=== PATIENT | male | born 2000 | race Caucasian/White ===

== ENCOUNTER 2021-08-30 15:18 | Emergency (ER) | payer OTHER, SELFPAY ==
[2021-08-30 15:24] VITALS: BP 128/89; PULSE 92; RESP 16; TEMP 36.4; O2SAT 100
[2021-08-30 15:30] LABS: Glucose Point of Care 101 mg/dl (65-105)
--- NOTE | 2021-08-30 15:30 | ECG_ITS ---
Measurements Intervals [place] Rate: 86 P: 45 CA: 156 QRS: 64 QRSD: 93 T: 51 QT: 356 QTc: 426 Interpretive Statements SINUS RHYTHM NO PREVIOUS ECG AVAILABLE FOR COMPARISON Electronically Signed On 08-30-2021 18:48:00 CDT by Rose Ramirez M.D.
[2021-08-30 15:59] LABS: Basophils Absolute Auto 0.1 K/mm3 (0.0-0.1); Basophils Percent Auto 0.6 % (0.2-1.2); Eosinophils Absolute Auto 0.2 K/mm3 (0-0.3); Eosinophils Percent Auto 1.6 % (0-4.4); Hematocrit 42.5 % (42.0-52.0); Immature Granulocyte Absolute 0.05 K/mm3 (0.00-0.031); Immature Granulocyte Percent A 0.4 % (0-0.5); Lymphocytes Absolute Auto 2.46 K/mm3 (0.9-3.2); Lymphocytes Percent Auto 20.5 % (18.3-44.2); Mean Corpuscular HGB Conc 35.3 g/dl (32-36); Mean Corpuscular Hemoglobin 30.4 pg (26-34); Mean Corpuscular Volume 86.2 fl (80-100); Mean Platelet Volume 10.7 fl (7.4-10.4); Monocytes Percent Auto 7.9 % (2.6-8.5); Neutrophils Absolute Auto 8.3 K/mm3 (1.3-6.7); Platelet Count Result 298 k/mm3 (150-375); Red Blood Count 4.93 M/mm3 (4.6-6.20); Red Cell Distribution Width 12.1 % (11.5-14.5)
[2021-08-30 16:11] LABS: Alanine Aminotransferase 15 U/L (4-50); Albumin Level 4.7 g/dL (3.5-5.1); Alkaline Phosphatase 114 U/L (38-126); Anion Gap 8 mmol/L (8-16); Aspartate Amino Transferase 27 U/L (17-59); Bilirubin,Total 0.5 mg/dL (0.2-1.3); Blood Urea Nitrogen 17 mg/dL (9-20); Calcium 8.9 mg/dL (8.4-10.2); Carbon Dioxide 24 mmol/L (22-30); Chloride 104 mmol/L (98-107); Estimated CRCL calculation 132 ml/min; Estimated Glomerular Filt Rate > 60; Glucose 98 mg/dL (65-110); Potassium 4.2 mmol/L (3.4-5.0); Sodium 136 mmol/L (137-145)
--- NOTE | 2021-08-30 16:13 | ED.NEUROSD ---
HPI - Neuro Symptoms/Deficit General Chief Complaint: Suspected CVA Stated Complaint: R sided numbness Time Seen by Provider: 08/30/21 15:24 Source: patient Limitations: no limitations History of Present Illness HPI Narrative: Patient presents with anxiety-like symptoms, feeling hot, restless, numbness of the face and right side of the body, poor concentration, epigastric discomfort, jittery feeling inside and shaky outside. Started at work while trying certain stuff together. Patient is telling me that he had history of anxiety/stress and depression, does not take medications, started the job 1 month ago, too much pressure and stress because constantly been asked to do perfectly job and patient unable to do it. Patient denies any fever, chills, chest pain, shortness of breath, headache or focal neuro deficit Related Data Allergies Allergy/AdvReac Type Severity Reaction Status Date / Time No Known Allergies Allergy Verified 08/30/21 15:30 Review of Systems Review of Systems: CONSTITUTIONAL: Denies fever, chills, or sweats. EYES: Denies visual changes, redness, or discharge. ENT: Denies rhinorrhea, congestion, sore throat, or otalgia. CARDIOVASCULAR: Denies chest pain, palpitations, or edema. RESPIRATORY: Denies cough or dyspnea. GASTROINTESTINAL: Denies abdominal pain, nausea, vomiting, or diarrhea. GENITOURINARY: Denies dysuria or hematuria. SKIN: Denies rash or itching. MUSCULOSKELETAL: Denies back pain, joint pain, or myalgia. NEUROLOGIC: Denies headache, numbness, or weakness. PSYCHIATRIC: Denies anxiety or depression. [facility] Past Medical History Medical History ADHD Exam Narrative: General appearance: Well-developed, well-nourished Skin: Normal color Head: Normocephalic, nontraumatic Eyes: Clear conjunctiva ENT: Oropharynx normal, ears normal, nose normal Neck: Supple, nontender Chest and respiratory: Airway patent, no respiratory distress, no accessory muscle use Heart: Regular rate/rhythm Abdomen: Soft, nontender, no organomegaly, quiet bowel sounds Vascular: Normal peripheral pulses, normal capillary refill. Musculoskeletal: Normal range of motion, nontender back Neurologic: Alert and oriented ?3, [employer] is normal as tested, no gross motor deficit Course Course Emergency Course: Stable Patient symptoms resolved after Ativan 1 mg IV. Patient would like to get off work today. Girlfriend at the bedside Vital Signs Vital signs: Vital Signs Temperature 36.4 C 08/30/21 15:24 Pulse Rate 92 08/30/21 15:24 Respiratory Rate 16 08/30/21 15:24 Blood Pressure 128/89 08/30/21 15:24 Pulse Oximetry 100 08/30/21 15:24 Temperature 36.4 C 08/30/21 15:24 Pulse Rate 92 08/30/21 15:24 Respiratory Rate 16 08/30/21 15:24 Blood Pressure 128/89 08/30/21 15:24 Pulse Oximetry 100 08/30/21 15:24 MDM - Neuro Symptoms/Deficit MDM Narrative Medical decision making narrative: Patient presents with anxiety-like symptoms Differential diagnosis as below Lab Data Result diagrams: 08/30/21 15:47 08/30/21 15:47 Labs: Lab Results 08/30/21 08/30/21 08/30/21 Range/Units 15:27 15:47 15:47 WBC 12.0 H (4.5-10.0) K/mm3 RBC 4.93 (4.6-6.20) M/mm3 Hgb 15.0 (14.0-18.0) g/dL Hct 42.5 (42.0-52.0) % MCV 86.2 (80-100) fl MCH 30.4 (26-34) pg MCHC 35.3 (32-36) g/dl RDW 12.1 (11.5-14.5) % Plt Count 298 (150-375) k/mm3 MPV 10.7 H (7.4-10.4) fl Immature Gran % (Auto) 0.4 (0-0.5) % Neut % (Auto) 69.0 (45.5-73.1) % Lymph % (Auto) 20.5 (18.3-44.2) % [place] % (Auto) 7.9 (2.6-8.5) % Eos
[2021-08-30 16:19] LABS: Add Urine Microscopic? NO; Appearance Urine Clear (Clear); Bilirubin Urine Negative (Negative); Blood Urine Negative (Negative); Color Urine Yellow (Yellow); Glucose Urine UA Negative (Negative); Ketones Urine Negative (Negative); Leukocyte Esterase Ur Negative LEU/UL (Negative); Nitrate Urine Negative (Negative); Protein Urine Negative (Negative); Specific Grav Ur 1.011 (1.001-1.035); Urobilinogen Urine Negative mg/dL (<2.0)
[2021-08-30] MEDS: LORazepam INJ (*CRX) 2 MG/ML VIAL 1 MG IV PUSH (16:20)
[2021-08-30 16:34] VITALS: BP 124/73; PULSE 83; PULSE 94; RESP 16; RESP 17; O2SAT 97
== END 2021-08-30 16:44 | disposition home or self-care (01) ==
PROVIDERS: Emergency Provider Emergency Medicine
DX: F41.9 Anxiety disorder, unspecified (principal)
CPT/HCPCS: 36415; 80053; 81003; 82948; 85025; 93005; 96374; 99284; J2060

== ENCOUNTER 2022-04-15 11:09 | Emergency (ER) | payer OTHER, SELFPAY ==
--- NOTE | 2022-04-15 11:12 | ED.ABDPAIN ---
HPI - Abdominal Pain General Chief Complaint: Nausea/Vomiting/Diarrhea Stated Complaint: Vomiting, Abdominal Pain Time Seen by Provider: 04/15/22 11:19 Source: patient and RN notes reviewed Mode of arrival: ambulatory Limitations: no limitations History of Present Illness HPI narrative: 21-year-old male presents to the [facility] with complaints of 5 days of nausea, vomiting, right upper quadrant and epigastric pain. Patient states any time he eats and drinks even water he starts to vomit. Unsure if he has been running fevers. Reports that he has started having worsening epigastric pain this morning. Threw up 5 times at work today and his boss sent him to be evaluated. Related Data Allergies Allergy/AdvReac Type Severity Reaction Status Date / Time No Known Allergies Allergy Verified 04/15/22 11:29 Review of Systems Review of Systems: All systems reviewed & are unremarkable except as noted in HPI and below Constitutional: Constitutional: Reports no additional constitutional complaints, Denies chills and Denies fever(s) Eyes: Eyes: Reports no additional eye complaints ENT: Reports system reviewed and no additional complaints, except as documented Cardiovascular: Cardiovascular: Reports no additional cardiovascular complaints Respiratory: Respiratory: Reports no additional respiratory complaints Gastrointestinal: Gastrointestinal: Reports as per HPI, Reports abdominal pain, Reports nausea and Reports vomiting Musculoskeletal: Musculoskeletal: Reports no additional musculoskeletal complaints Integumentary/Breasts: Skin/Breast: Reports system reviewed and no additional complaints, except as docu Neurologic: Reports system reviewed and no additional complaints, except as documented Psychiatric: Psychiatric: Reports no additional psychiatric complaints Allergic/Immunologic: Allergic/Immunologic: Reports no additional allergic/immunologic complaints [facility] Past Medical History Medical History (Updated 04/15/22 @ 11:46 by Paty Barriga APRN) ADHD Carpal tunnel syndrome of right wrist Surgical History Surgical History (Updated 04/15/22 @ 11:28 by Paty Barriga APRN) History of carpal tunnel surgery of right wrist Social History Social History (Updated 04/15/22 @ 11:29 by Paty Barriga APRN) Gender identity (if verbalized by the patient): Male Comments At the time of my signature, I reviewed and agree with the nursing past medical, surgical, social, and family history. There is no relevant family history pertinent to the patient complaint. Exam Const: General: no acute distress, alert, ill appearing acutely (mild) and well nourished Nutritional Appearance: well nourished Orientation/consciousness: patient oriented x3 Limitations: no limitations HENMT: Head: normal to inspection Ears: external ears normal, TM's normal bilaterally and EAC's normal Face/Nose/Sinus: Normal external nose present and Normal nares present Face and sinus: normal facial exam Mouth: Yes Normal oral and palatal mucosa present, Yes lip normal and Yes moist mucous membranes Throat: posterior oropharynx normal and uvula midline Eyes: General: appearance normal, both eyes and all related structures Conjunctivae: conjunctivae normal Pupils: Equal, round and reactive pupils present Neck: Neck: normal visual inspection, no lymphadenopathy and no meningeal signs Chest: Chest palpation & inspection: normal inspection of the chest Resp: Effort & Inspection: normal respiratory effort and no use of accessory muscles Auscultation: clear to auscultation bilaterally, no crackles, no rales, no rhonchi and no wheezes Cardio: Rate: regular rate Rhythm: regular rhythm GI: Inspection: normal to inspection GI Palp: Yes Soft to palpation, Yes Tenderness to palpation present (GI) (Epigastric, right upper quadrant) and Yes No hepatosplenomegaly present Percussion: Yes normal to percussion Auscultation: normal bowel sounds Skin: Gene
[2022-04-15 11:17] VITALS: BP 134/68; PULSE 90; RESP 16; TEMP 36.2; O2SAT 99
== END 2022-04-15 11:30 | disposition short-term general hospital (02) ==
PROVIDERS: Emergency Provider Nurse Practitioner
DX: R10.11 Right upper quadrant pain (principal); R11.2 Nausea with vomiting, unspecified
CPT/HCPCS: 99212; G0463

== ENCOUNTER 2022-04-15 11:48 | Emergency (ER) | payer OTHER, SELFPAY ==
[2022-04-15 12:07] VITALS: BP 137/85; PULSE 86; RESP 16; TEMP 36.4; O2SAT 100
[2022-04-15 12:43] LABS: Basophils Percent Auto 0.3 % (0.2-1.2); Eosinophils Absolute Auto 0.1 K/mm3 (0-0.3); Eosinophils Percent Auto 0.7 % (0-4.4); Hematocrit 44.5 % (42.0-52.0); Hemoglobin 15.3 g/dL (14.0-18.0); Immature Granulocyte Absolute 0.04 K/mm3 (0.00-0.031); Immature Granulocyte Percent A 0.3 % (0-0.5); Lymphocytes Absolute Auto 2.39 K/mm3 (0.9-3.2); Lymphocytes Percent Auto 20.2 % (18.3-44.2); Mean Corpuscular HGB Conc 34.4 g/dl (32-36); Mean Corpuscular Hemoglobin 30.6 pg (26-34); Mean Platelet Volume 10.1 fl (7.4-10.4); Monocytes Absolute Auto 0.6 K/mm3 (0.1-0.6); Monocytes Percent Auto 5.2 % (2.6-8.5); Neutrophils Absolute Auto 8.7 K/mm3 (1.3-6.7); Neutrophils Percent Auto 73.3 % (45.5-73.1); Platelet Count Result 284 k/mm3 (150-375); Red Cell Distribution Width 12.1 % (11.5-14.5); White Blood Count 11.8 K/mm3 (4.5-10.0)
[2022-04-15 12:46] LABS: Appearance Urine Clear (Clear); Bilirubin Urine Negative (Negative); Blood Urine Negative (Negative); Color Urine Yellow (Yellow); Glucose Urine UA Negative (Negative); Ketones Urine Negative (Negative); Leukocyte Esterase Ur Negative LEU/UL (Negative); Nitrate Urine Negative (Negative); Protein Urine Trace mg/dL (Negative); Urobilinogen Urine 0.2 mg/dL (<2.0); pH Urine 7.5 (5.0-9.0)
[2022-04-15 12:56] LABS: Alanine Aminotransferase 21 U/L (6-50); Albumin Level 4.9 g/dL (3.5-5.1); Alkaline Phosphatase 109 U/L (38-126); Anion Gap 9 mmol/L (8-16); Aspartate Amino Transferase 26 U/L (17-59); Bilirubin,Total 0.4 mg/dL (0.2-1.3); Blood Urea Nitrogen 7 mg/dL (9-20); Calcium 9.1 mg/dL (8.4-10.2); Carbon Dioxide 27 mmol/L (22-30); Chloride 102 mmol/L (98-107); Estimated CRCL calculation 148 ml/min; Estimated Glomerular Filt Rate > 60; Glucose 100 mg/dL (65-110); Lipase 41 U/L (23-300); Potassium 4.1 mmol/L (3.4-5.0); Sodium 138 mmol/L (137-145)
[2022-04-15 12:58] LABS: Mucus Urine Rare /lpf; RBC Urine 0-2 /hpf (0-2); WBC Urine 0-3 /hpf
[2022-04-15 12:59] LABS: Add Urine Microscopic? YES
--- NOTE | 2022-04-15 14:26 | PC.NURSE ---
pt approached intake desk and states he is going to get something to eat and might be back tomorrow. pt ambulated out of ER doors.
== END 2022-04-15 14:26 | disposition left against medical advice (07) ==
LOC: ANHED 14:30
PROVIDERS: Emergency Provider Emergency Medicine
DX: R11.2 Nausea with vomiting, unspecified (principal)
CPT/HCPCS: 36415; 80053; 81001; 83690; 85025; 99199

== ENCOUNTER 2024-01-15 15:17 | Emergency (ER) | payer SELFPAY ==
[2024-01-15 15:36] VITALS: BP 140/82; PULSE 96; RESP 18; TEMP 36.6; O2SAT 100
--- NOTE | 2024-01-15 16:50 | ED.GENADULT ---
HPI - General Adult General Chief complaint: Skin/Abscess/Foreign Body Stated complaint: ABSCESSES TO INNER THIGHS Time Seen by Provider: 01/15/24 16:08 History of Present Illness HPI narrative: 23-year-old male with a history of groin abscesses presenting with 2 prior abscesses. Given there for last 3 weeks. He can usually get them popped home these were not popping getting worse. No surrounding cellulitis. No systemic signs of illness. Related Data Allergies Allergy/AdvReac Type Severity Reaction Status Date / Time No Known Allergies Allergy Verified 01/15/24 16:03 [facility] Past Medical History Medical History (Updated 01/15/24 @ 16:52 by Kvng Mendoza MD) ADHD Carpal tunnel syndrome of right wrist Surgical History Surgical History (Updated 04/15/22 @ 11:28 by Paty Barriga APRN) History of carpal tunnel surgery of right wrist Social History Social History (Updated 04/15/22 @ 11:29 by Paty Barriga APRN) Gender identity (if verbalized by the patient): Male Exam Narrative: APPEARANCE: No apparent distress. Head: atraumatic. EYES: EOMI, NOSE: Atraumatic NECK: Trachea midline RESPIRATORY: No increased rate of breathing CARDIOVASCULAR: RRR, ABDOMINAL: Non-distended MUSCULOSKELETAl: No obvious deformities NEURO: Alert. Moving 4/4 extremities SKIN:: abscess 1 cm x 2 cm in the left groin with no cellulitis., 1 cm x 1 cm abscess in the right brain without cellulitis. PSYCHIATRIC: Normal affect Course Vital Signs Vital signs: Vital Signs Temperature 97.9 F 01/15/24 15:36 Pulse Rate 96 01/15/24 15:36 Respiratory Rate 18 01/15/24 15:36 Blood Pressure 140/82 01/15/24 15:36 Pulse Oximetry 100 01/15/24 15:36 Temperature 97.9 F 01/15/24 15:36 Pulse Rate 96 01/15/24 15:36 Respiratory Rate 18 01/15/24 15:36 Blood Pressure 140/82 01/15/24 15:36 Pulse Oximetry 100 01/15/24 15:36 Medical Decision Making MDM Narrative Medical decision making narrative: -Course: 23-year-old male presenting bilateral small groin abscess. Both were eye indeed without complication. Patient discharged with primary care follow-up. -DDX includes but is not limited to: Hydradenitis suppurativa, folliculitis, abscess -Co-morbidities complicating care: history of abscess -Shared decision making / Disposition:discharged. Vital Signs Vital Signs: Vital Signs Temperature 97.9 F 01/15/24 15:36 Pulse Rate 96 01/15/24 15:36 Respiratory Rate 18 01/15/24 15:36 Blood Pressure 140/82 01/15/24 15:36 Pulse Oximetry 100 01/15/24 15:36 Temperature 97.9 F 01/15/24 15:36 Pulse Rate 96 01/15/24 15:36 Respiratory Rate 18 01/15/24 15:36 Blood Pressure 140/82 01/15/24 15:36 Pulse Oximetry 100 01/15/24 15:36 Discharge Plan Discharge Clinical Impression: Abscess Patient Disposition: Home, Self-Care Condition: Stable Instructions: Antibiotic Form, Abscess (ED) Additional Instructions: please follow-up with primary care physician for further management. Return if your abscess returned, if you develop infection, or would like re-evaluation. Prescriptions: No Action clonazepam 0.25 mg tablet,disintegrating 0.25 mg PO BID Qty: 14 0RF Follow-up/Referrals: UNKNOWN,DOCTOR [Primary Care Provider] -
[2024-01-15] MEDS: LIDO 1%/EPINEPHRINE 1:100,000 20 ML VIAL (16:53)
== END 2024-01-15 17:02 | disposition home or self-care (01) ==
PROVIDERS: Emergency Provider Emergency Medicine
DX: L02.415 Cutaneous abscess of right lower limb (principal); L02.416 Cutaneous abscess of left lower limb
CPT/HCPCS: 99281

== ENCOUNTER 2024-03-23 08:42 | Emergency (ER) | payer SELFPAY ==
[2024-03-23 08:50] VITALS: BP 137/88; PULSE 96; RESP 16; TEMP 36.2; O2SAT 99
--- NOTE | 2024-03-23 09:01 | ED.NAVMDI ---
HPI - Nausea/Vomiting/Diarrhea General Chief complaint: Nausea/Vomiting/Diarrhea Stated complaint: Abdominal Pain Time Seen by Provider: 03/23/24 08:44 Source: patient Mode of arrival: ambulatory Limitations: no limitations History of Present Illness HPI Narrative: Patient is a 23-year-old male who presents with nausea and abdominal pain for 2 days. Patient still has dull ache center abdomen but no burning up in throat. Does state he ate spicy food that he does not normally talks rate. Denies any vomiting or diarrhea. Patient states he needs a return to work note due to calling in sick for 2 days. Related Data Allergies Allergy/AdvReac Type Severity Reaction Status Date / Time No Known Allergies Allergy Verified 01/15/24 16:03 Review of Systems Review of Systems: All systems reviewed & are unremarkable except as noted in HPI and below Constitutional: Constitutional: Denies body ache(s), Denies chills, Denies fatigue, Denies fever(s), Denies headache(s), Denies malaise and Denies weakness Eyes: Eyes: Denies blurry vision, Denies irritation and Denies loss of vision ENT: Denies otalgia, Denies headache(s), Denies nasal discharge, Denies sinus pain and Denies sore throat Cardiovascular: Cardiovascular: Denies chest pain, Denies irregular heart rhythm and Denies dyspnea Respiratory: Respiratory: Denies dyspnea Gastrointestinal: Gastrointestinal: Reports abdominal pain, Denies melena, Denies hematochezia, Denies diarrhea, Reports nausea and Denies vomiting Musculoskeletal: Musculoskeletal: Denies back pain, Denies myalgias and Denies arthralgias Integumentary/Breasts: Skin/Breast: Denies pruritus and Denies rash Neurologic: Denies headache(s), Denies loss of vision and Denies weakness Psychiatric: Psychiatric: Reports no additional psychiatric complaints Endocrine: Endocrine: Denies fatigue PMFSH Past Medical History Medical History ADHD Carpal tunnel syndrome of right wrist Surgical History Surgical History History of carpal tunnel surgery of right wrist Social History Social History Gender identity (if verbalized by the patient): Male Comments At time of signature, agree with nursing past medical, surgical, social and family history. There is no relevant family history pertinent to the presenting complaint. Exam Const: General: cooperative, healthy appearing, comfortable, no acute distress and well nourished Nutritional Appearance: well nourished Orientation/consciousness: patient oriented x3 Limitations: no limitations HENMT: Head: normal to inspection, normocephalic and atraumatic Ears: hearing grossly normal bilaterally and external ears normal Face/Nose/Sinus: Normal external nose present, normal facial exam and face symmetric Face and sinus: normal facial exam and face symmetric Mouth: Yes lip normal Eyes: General: appearance normal, both eyes and all related structures Alignment and Position: alignment normal and position normal Periorbital: periorbital findings normal Eyelids: eyelids normal Pupils: Equal, round and reactive pupils present EOM: EOMs intact bilaterally Neck: Neck: normal visual inspection, full ROM and supple Chest: Chest palpation & inspection: normal inspection of the chest Resp: Effort & Inspection: normal respiratory effort and able to speak in complete sentences Auscultation: clear to auscultation bilaterally Cardio: Rate: regular rate Rhythm: regular rhythm Heart sounds: S1 normal heart sound present and S2 normal heart sound present GI: Inspection: normal to inspection and non-distended GI Palp: Yes abdominal tenderness (upper abdominal), Yes Soft to palpation, No Guarding due to palpation present (GI) and No Rebound tenderness present Percussion: Yes normal to percussion Auscultation: normal b
== END 2024-03-23 09:20 | disposition home or self-care (01) ==
PROVIDERS: Emergency Provider Nurse Practitioner Family
DX: K21.9 Gastro-esophageal reflux disease without esophagitis (principal)
CPT/HCPCS: 99213; G0463

== ENCOUNTER 2024-10-19 11:52 | Emergency (ER) | payer SELFPAY ==
--- NOTE | 2024-10-19 11:55 | ED.ABDPAIN ---
HPI - Abdominal Pain General Chief Complaint: Nausea/Vomiting/Diarrhea Stated Complaint: Abdominal Pain Time Seen by Provider: 10/19/24 11:55 Source: patient Mode of arrival: ambulatory Limitations: no limitations History of Present Illness HPI narrative: Lon is a 24-year-old male patient presenting to the clinic today with complaints of nausea, vomiting, diarrhea, abdominal cramping x2 days. He reports he believes he has food poisoning. He states he ate some food out of the Fridge that was likely bad. States he has had approximately 7 episodes vomiting and too numerous to count episodes of diarrhea over the past 2 days. He appears hydrated in the clinic today. Vital signs are stable. He denies any abdominal pain at this time. No fevers, chills, body aches. States he did notice a little bit of blood in his emesis but no blood in his stool. He is requesting a work note. Related Data Allergies Allergy/AdvReac Type Severity Reaction Status Date / Time No Known Allergies Allergy Verified 10/19/24 11:59 Review of Systems Review of Systems: Pertinent positives per HPI. Patient denies any fever, chills, rash, headache, visual changes, dizziness, cough, runny nose, sore throat, shortness of breath, chest pain, palpitations, nausea, vomiting, diarrhea, constipation, abdominal pain, or any urinary issues. PMFSH Past Medical History Medical History Carpal tunnel syndrome of right wrist ADHD Surgical History Surgical History History of carpal tunnel surgery of right wrist Social History Social History Gender identity (if verbalized by the patient): Male Comments At the time of my signature, I reviewed and agree with the nursing past medical, surgical, social, and family history. There is no relevant family history pertinent to the patient complaint. Exam Narrative: General: Well-developed, well nourished, in no apparent distress. Head: Normocephalic, atraumatic. Cardio: Regular rate and rhythm, s1 and s2 normal, no murmur appreciated. Resp: Clear to auscultation bilaterally, no rhonchi, rales, wheezing or rubs. Abdomen: Soft, pliable, bowel sounds present in all quadrants, mid epigastric/mid abdomen tender to palpation, no organomegly, no CVAT tenderness. Course Course Emergency Course: Portions of this record may have been created with voice recognition software. Level of Care: Express Care Visit Vital Signs Vital signs: Vital signs reviewed MDM - Abdominal Pain MDM Narrative Medical decision making narrative: At the time of visit patient is resting comfortably on the exam table. Patient appears to be nontoxic. Plan: I suspect patient has GERD/gastroenteritis. Prescription for omeprazole, Levsin, and Zofran was sent to the pharmacy. Work note was given. Supportive measures were discussed with the patient and they voiced understanding discharge instructions and agrees to treatment plan. Return precautions reviewed Differential Diagnosis Differential diagnosis: Likely abdominal pain, acute appendicitis, calculus of kidney, constipation, diverticulitis, gastroenteritis, pancreatitis and small bowel obstruction Discharge Plan Discharge Clinical Impression: Gastroenteritis, Epigastric abdominal pain Patient Disposition: Home Condition: Stable Instructions: Antibiotic Form, Diet for Stomach Ulcers and Gastritis (ED), Gastroenteritis (ED), GERD (Gastroesophageal Reflux Disease) (ED) Additional Instructions: Take medications as prescribed-omeprazole, Levsin, and Zofran Increase fluids and stay well hydrated Avoid eating spicy or fatty foods, chocolate, or drinking caffeine. Avoid foods that cause you to feel bloated. Stop smoking Lose weight/exercise Stay upright for at least 30 minutes after eating. May use tums for immediate relief Follow up with your PCP in 3-5 days if symptoms persist. Patient Language: Latvian Prescriptions: New omeprazole 20 mg capsule,delayed release(DR/EC) 20 mg PO DAILY 30 Days Qty: 30 0RF hyoscyamine sulfate 0.125 mg tablet,disintegrating 0.125 mg PO QID PRN (Reason: dyspepsia) 3 Days Qty: 12 0RF ondansetron 4 mg tablet,disintegrating 4 mg PO Q6H PRN (Reason: nausea and vomiting) 3 Days Qty: 12 0RF No Action pantoprazole 40 mg tablet,delayed release (DR/EC) 40 mg PO HS Qty: 14 0RF ondansetron 4 mg tablet,disintegrating 4 mg PO Q6-8H PRN (Reason: nausea and vomiting) Qty: 7 0RF clonazepam 0.25 mg tablet,disintegrating 0.25 mg PO BID Qty: 14 0RF Follow-up/Referrals: PHYSICIAN,SLOPE RUNNER [Primary Care Provider] - Stand Alone Forms: Work/School Release IP Time of Disposition: 12:10 Quality NIHSS Nursing Documentation ED NIHSS nursing documentation: reviewed/agree
[2024-10-19 11:59] VITALS: BP 118/74; PULSE 93; RESP 18; TEMP 36.8; O2SAT 99
== END 2024-10-19 12:21 | disposition home or self-care (01) ==
PROVIDERS: Emergency Provider Nurse Practitioner Family
DX: K52.9 Noninfective gastroenteritis and colitis, unspecified (principal); R10.13 Epigastric pain
CPT/HCPCS: 99213; G0463

== ENCOUNTER 2025-01-03 18:58 | Emergency (ER) | payer SELFPAY ==
--- NOTE | 2025-01-03 19:06 | ED.SKABFB ---
HPI - Skin/Abscess/Foreign Bdy General Chief complaint: Skin/Abscess/Foreign Body Stated complaint: Knot on L side of neck Time Seen by Provider: 01/03/25 19:10 Source: patient Mode of arrival: ambulatory Limitations: no limitations History of Present Illness HPI narrative: Lon is a 24-year-old male patient presenting to the clinic today with complaints of a possible insect bite to the left posterior neck. He reports he has seen some spiders in the house but is not sure if that is what bit him. For the past 3 days he has had a to the back of his neck. Was able to withdrawal some brownish purulent discharge from it by using a pimple patch. Area is burning/stinging. Denies any fevers, chills, body aches. No other known injury Related Data Allergies Allergy/AdvReac Type Severity Reaction Status Date / Time No Known Allergies Allergy Verified 01/03/25 19:02 Review of Systems Review of Systems: Pertinent positives per HPI. Patient denies any fever, chills, rash, headache, visual changes, dizziness, cough, runny nose, sore throat, shortness of breath, chest pain, palpitations, nausea, vomiting, diarrhea, constipation, abdominal pain, or any urinary issues. PENDING SALE TO [facility] Past Medical History Medical History Carpal tunnel syndrome of right wrist ADHD Surgical History Surgical History History of carpal tunnel surgery of right wrist Social History Social History Gender identity (if verbalized by the patient): Male Comments At the time of my signature, I reviewed and agree with the nursing past medical, surgical, social, and family history. There is no relevant family history pertinent to the patient complaint. Exam Narrative: General: Well-developed, well nourished, in no apparent distress Head: Normocephalic, atraumatic. Cardio: Regular rate and rhythm, s1 and s2 normal, no murmur appreciated. Resp: Clear to auscultation bilaterally, no rhonchi, rales, wheezing or rubs. Integumentary: [place], warm, and dry, 1 x 1 cm firm raised papule to the left posterior neck, nonfluctuant, mild redness, erythema, and tenderness to palpation. Course Course Emergency Course: Portions of this record may have been created with voice recognition software. Level of Care: Express Care Visit Vital Signs Vital signs: Vital Signs Temperature 36.7 C 01/03/25 19:07 Pulse Rate 99 01/03/25 19:07 Respiratory Rate 16 01/03/25 19:07 Blood Pressure 133/80 01/03/25 19:07 Pulse Oximetry 95 01/03/25 19:07 Oxygen Delivery Room Air 01/03/25 19:07 Temperature 36.7 C 01/03/25 19:07 Pulse Rate 99 01/03/25 19:07 Respiratory Rate 16 01/03/25 19:07 Blood Pressure 133/80 01/03/25 19:07 Pulse Oximetry 95 01/03/25 19:07 Oxygen Delivery Room Air 01/03/25 19:07 Vital signs reviewed MDM - Skin/Abscess/Foreign Bdy MDM Narrative Medical decision making narrative: At the time of visit patient is resting comfortably on the exam table. Patient appears to be nontoxic. Patient denies any fevers, chills, body aches. Has had possible insect bite to the left posterior neck x3 days. Has expressed some brown purulent drainage from the area. Area measuring 1 x 1 cm firm, tender to palpation with mild erythema, unable to express any discharge at this time Plan: I suspect patient has a infected insect bite to the left posterior neck. Prescription for Bactrim was sent to the pharmacy. Supportive measures were discussed with the patient and they voiced understanding discharge instructions and agrees to treatment plan. Return precautions reviewed Differential Diagnosis Differential diagnosis: Likely abscess of skin or subcutaneous tissue, viral exanthem, dermatophytosis, urticaria, herpes zoster, allergic reaction to drug, cellulitis, eczema, insect bites, impetigo and contact dermatitis Discharge Plan Discharge Clinical Impression: Infected insect bite Qualifiers: Encounter type: initial encounter Qualified Code(s): W57.XXXA - Bitten or stung by nonvenomous insect and other nonvenomous arthropods, initial encounter Patient Disposition: Home Condition: Stable Instructions: Antibiotic Form, Insect Bite or Sting (ED) Additional Instructions: Increase fluids and stay well hydrated Take Bactrim as prescribed May take Tylenol/Motrin as needed for pain May apply warm compresses to the affected area to help withdrawal any pus Follow-up with your PCP in 2-3 days Patient Language: Macedonian Prescriptions: New sulfamethoxazole-trimethoprim [Bactrim DS] 800-160 mg tablet 1 tablet PO Q12H 7 Days Qty: 14 0RF No Action pantoprazole 40 mg tablet,delayed release (DR/EC) 40 mg PO HS Qty: 14 0RF ondansetron 4 mg tablet,disintegrating 4 mg PO Q6-8H PRN (Reason: nausea and vomiting) Qty: 7 0RF omeprazole 20 mg capsule,delayed release(DR/EC) 20 mg PO DAILY 30 Days Qty: 30 0RF hyoscyamine sulfate 0.125 mg tablet,disintegrating 0.125 mg PO QID PRN (Reason: dyspepsia) 3 Days Qty: 12 0RF ondansetron 4 mg tablet,disintegrating 4 mg PO Q6H PRN (Reason: nausea and vomiting) 3 Days Qty: 12 0RF clonazepam 0.25 mg tablet,disintegrating 0.25 mg PO BID Qty: 14 0RF Follow-up/Referrals: PHYSICIAN,[employer]ER [Primary Care Provider] - Time of Disposition: 19:10 Quality NIHSS Nursing Documentation ED NIHSS nursing documentation: reviewed/agree
[2025-01-03 19:07] VITALS: BP 133/80; PULSE 99; RESP 16; TEMP 36.7; O2SAT 95
== END 2025-01-03 19:13 | disposition home or self-care (01) ==
PROVIDERS: Emergency Provider Nurse Practitioner Family
DX: S10.96XA Insect bite of unspecified part of neck, initial encounter (principal); L08.9 Local infection of the skin and subcutaneous tissue, unspecified; W57.XXXA Bitten or stung by nonvenomous insect and other nonvenomous arthropods, initial encounter
CPT/HCPCS: 99213; G0463